=== PATIENT | female | born 1960 | race Hispanic/Latino ===

== ENCOUNTER → 2019-08-29 | Outpatient (CLI) | payer MEDICARE ==
[~2019-08-29] MED LIST: ASPIRIN81 MG; ATORVASTATIN CA10 MG PO; BUPIVACAINE HCL 0.5% INJ 30 ML VIAL INJ ONE; DEXAMETHASONE SOD PHOS INJ 4 MG/ML VIAL ONE; DICYCLOMINE HCL10 MG; EPHEDRINE SULFATE INJ 50 MG/ML VIAL ONE; ESOMEPRAZOLE MA40 MG; FENTANYL CITRATE/PF 100MCG/2 ML INJ ONE; FUROSEMIDE40 MG/4 ML IV; GABAPENTIN100 MG; HEPARIN SOD (PORCINE) 1000 UNIT/ML 30ML ONE; HEPARIN SOD (PORCINE) 5,000 UNIT/ML VIAL ONE; LEVOTHYROXINE137 MCG; LIDOCAINE HCL 2% LOCAL INJ 5 ML SDV VIAL INJ ONE; LINZESS145 MCG; LORATADINE10 MG PO; METOCLOPRAMIDE HCL 10 MG/2ML VIAL ONE; ONDANSETRON HCL INJ 2MG/ML 2ML 2 MG/ML VIAL ONE; PROPOFOL IV EMULSION 10 MG/ML 20 ML VIAL ONE; PROTAMINE SULFATE 10 MG/ML 5 ML VIAL ONE; RENVELA0.8 GM; SEVOFLURANE INHAL SOLN 250 ML PEN BTL ONE; SODIUM CHLORIDE 0.9% 500ML 500 ML ONE; THROMBIN FOR SOLN 5,000 UNIT VIAL ONE; ULTRAM50 MG PO; VANCOMYCIN 1GM/NS 250 ML 250 ML ONE; VITAMIN D2400 UNIT
[2019-08-29 16:51] LABS: BASOPHILS # (AUTO) 0.1 (0.0-0.1); EOSINOPHILS # (AUTO) 0.4 (0.0-0.4); EOSINOPHILS % 8.2 % (0.0-6.0); HEMATOCRIT 31.4 % (34.2-44.1); HEMOGLOBIN 10.1 g/dL (12.0-16.0); LYMPHOCYTES # (AUTO) 1.2 (1.0-3.2); LYMPHOCYTES % 24.4 % (18.0-39.1); MEAN CORPUSCULAR HGB CONC 32.2 g/dL (31-35); MEAN CORPUSCULAR VOLUME 96.3 fL (81-99); MONOCYTES # (AUTO) 0.6 (0.2-0.8); MONOCYTES % 11.7 % (4.4-11.3); NEUTROPHILS # (AUTO) 2.6 (2.1-6.9); NEUTROPHILS % 54.3 % (38.7-80.0); PLATELET COUNT 232 x10e3/uL (140-360); RED BLOOD COUNT 3.26 x10e6/uL (3.6-5.1); RED CELL DISTRIBUTION WIDTH 17.3 % (11.7-14.4)
[2019-08-29 17:18] LABS: ALBUMIN 3.8 g/dL (3.5-5.0); ALBUMIN/GLOBULIN RATIO 1.2 (0.8-2.0); ANION GAP 15.6 mmol/L (8-16); CALCIUM 9.4 mg/dL (8.4-10.2); CREATININE, SERUM 7.46 mg/dL (0.57-1.11); POTASSIUM 4.6 mmol/L (3.5-5.1)
[2019-09-21 12:08] LABS: INR 0.84
--- NOTE | 2019-09-21 16:31 | Diagnostic Imaging Report ---
EXAM: CHEST SINGLE (PORTABLE) DATE: 09/21/2019 4:08 PM INDICATION: Line placement COMPARISON: None FINDINGS: There is a right internal jugular coursing tunnel dialysis catheter with distal tip terminating appropriately over the cavoatrial junction. There is a multilead left-sided AICD identified in place. The trachea is midline. The lungs are symmetrically expanded without evidence for large focal consolidation, pneumothorax, or significant pleural effusion. The cardiomediastinal silhouette is within normal limits. Atherosclerotic calcifications are noted within the aortic arch. No acute osseous abnormality is identified. IMPRESSION: Right chest tunneled dialysis catheter identified in appropriate position. No evidence for pneumothorax. Signed by: Dr. Wade Locke MD on 09/21/2019 4:28 PM
[2019-09-21 16:45] VITALS: BP 108/58
--- NOTE | 2019-09-21 17:13 | Operative Report ---
DATE OF PROCEDURE: 09/21/2019 SURGEON: Dank Hayes MD PREOPERATIVE DIAGNOSES: End-stage renal failure, poorly functioning left upper extremity AV fistula, hypertension. POSTOPERATIVE DIAGNOSES: End-stage renal failure, poorly functioning left upper extremity AV fistula, hypertension. OPERATIVE PROCEDURES: 1. Revision left radial artery to cephalic vein AV fistula with qzjn-so-lhps anastomosis of radial artery to fistula/cephalic vein. 2. Insertion of tunneled hemodialysis catheter. 3. Fluoroscopy. WELCOME WAG[employer] HOST/HOSTESS: Nursing. ANESTHESIA: LMA. INDICATIONS: This is a 59-year-old lady with end-stage renal failure. She has had a left radial artery to cephalic vein fistula for several years. Flow is diminished by noninvasive studies as well as dye study. There is a stenosis at the perforating vein. A rcje-pn-else anastomosis of radial artery to cephalic vein to improve fistula flow has been recommended. Because of the rather short length of the fistula, a temporary tunneled dialysis catheter was necessary. I described the operation to the patient and her daughter. I told them both that the risks of surgery would include , bleeding, infection, heart attack, stroke, pneumonia, prolonged ICU stay, mechanical ventilation, permanent hand/limb muscle or nerve damage, hand/limb amputation, hand/limb chronic pain, a 10% to 15% chance that the fistula might not mature appropriately and require subsequent revision, further surgery, or replacement, etc. The patient and her daughter each stated that they understood, no further questions, and wanted to proceed. FINDINGS: Uneventful ekwk-fx-tbzz anastomosis of the radial artery to outflow cephalic vein with improvement of flow. Excellent palpable thrill and audible bruit at the conclusion of surgery. Tunneled dialysis catheter placed uneventfully via the right internal jugular vein. Fluoroscopy revealed to be well positioned without any evidence of pneumothorax. DESCRIPTION OF PROCEDURE: The patient was taken to the operative room on September 21, 2019, and placed supine upon the operating room table. LMA anesthesia was smoothly induced. The left upper extremity and anterior chest were sterilely prepped and draped in the usual fashion using alcohol prewash and Betadine scrub and solution. Right internal jugular vein was accessed. Using Seldinger technique, a subcutaneously tunneled dialysis catheter was inserted into the RA/SVC junction under fluoroscopic guidance. There was no evidence of pneumothorax and the catheter irrigated without difficulty. The wounds were closed in layers using absorbable suture. Sterile dressings were applied. Attention was turned to the fistula. Incision was made midway between the two access sites. The outflow cephalic vein was isolated and controlled. It had an acceptable palpable thrill. The radial artery was dissected at the same level. The patient was systemically heparinized. The radial artery was not calcified, but was of somewhat narrow caliber. It was opened longitudinally. It accepted a 2.5 mm dilator with good inflow and outflow. The cephalic vein had good backbleeding. A longitudinal venotomy was created. A pbpa-jq-ktdh anastomosis of vein to artery was performed using two running 7-0 Prolene suture. Prior to completing the anastomosis, a 2.0 mm dilator passed easily proximally and distally into the radial artery and a 4.0 mm dilator passed easily proximally and distally into the cephalic vein. The anastomosis was completed. Occluding instruments were removed. A half dose of protamine was administered to reverse the systemic heparin that had been given at a dose of 1 mg/kg intravenously prior to occluding any of the vascular structures. There was good hemostasis. The wound was closed in layers using absorbable suture. Sterile dressings were applied. Sponge, instrument, needle counts were correct both prior to and after wound closure. Independent search of the operative field by both operating surgeons and nurse revealed no retained instruments or sponges. The patient tolerated the procedure well, was taken to the recovery area in stable condition. MD AYAD Knight/JAYAL /[id number]
== END ==
LOC: DX 15:33 → EDSTATUS 09-21 13:30
PROVIDERS: ATTEND Surgery
DX: Z01.818 Encounter for other preprocedural examination (principal); I12.0 Hypertensive chronic kidney disease with stage 5 chronic kidney disease or end stage renal disease; E11.22 Type 2 diabetes mellitus with diabetic chronic kidney disease; N18.6 End stage renal disease; Z53.8 Procedure and treatment not carried out for other reasons
CPT/HCPCS: 36415; 80053; 82948; 84132; 85025; 85610; 85730